=== PATIENT | female | born 1995 | race Caucasian/White ===

== ENCOUNTER 2018-06-05 00:34 | Emergency (ER) | payer SELFPAY ==
[~2018-06-05] VITALS: Ht 157.5 cm; Wt 101.8 kg
[2018-06-05 00:38] VITALS: BP 109/93; TEMP 98.5
[2018-06-05 01:16] LABS: COLLECTION METHOD CLEAN CATCH
[2018-06-05 01:21] LABS: MUCOUS Present /lpf; PH 5 (5-8); URINE APPEARANCE Cloudy; URINE BACTERIA None Seen /hpf; URINE BILIRUBIN Negative (NEGATIVE); URINE BLOOD Negative (NEGATIVE); URINE COLOR Yellow; URINE GLUCOSE Negative (NEGATIVE); URINE KETONE Negative (NEGATIVE); URINE LEUKOCYTE ESTERASE Negative (NEGATIVE); URINE NITRATE Negative (NEGATIVE); URINE PROTEIN(semi-quant) Negative (NEGATIVE); URINE RBC 0-2 /hpf; URINE UROBILINOGEN Negative (NEGATIVE)
[2018-06-05 01:58] VITALS: PULSE 96
== END 2018-06-05 02:04 | disposition home or self-care (01) ==
LOC: COL.ER 00:34
PROVIDERS: Physician Assistant
DX: O26.891 Other specified pregnancy related conditions, first trimester (principal); R22.41 Localized swelling, mass and lump, right lower limb; Z3A.00 Weeks of gestation of pregnancy not specified